=== PATIENT | female | born 1970 | race Caucasian/White ===

== ENCOUNTER 2017-06-09 15:44 | Emergency (ER) | payer BC, OTHER ==
[~2017-06-09] VITALS: Ht 167.6 cm; Wt 88.0 kg
[2017-06-09 15:50] VITALS: Ht 167.6 cm; Wt 88.0 kg
[2017-06-09 16:57] LABS: BASOPHILS % 0.5 % (0.0-2.0); EOSINOPHILS # 0.3 10^3/ul (0.0-0.5); HEMATOCRIT 35.9 % (37.0-47.0); HEMOGLOBIN 12.4 g/dl (12.0-16.0); LYMPHOCYTES # 2.7 10^3/ul (0.8-2.9); MEAN CORPUSCULAR HEMOGLOBIN 30.3 pg (29.0-33.0); MEAN CORPUSCULAR HGB CONC 34.5 g/dl (32.0-37.0); MEAN CORPUSCULAR VOLUME 87.8 fl (82.0-101.0); MEAN PLATELET VOLUME 10.1 fl (7.4-10.4); MONOCYTE # 0.8 10^3/ul (0.3-0.9); NEUTROPHIL # 4.7 10^3/ul (1.6-7.5); NEUTROPHILS % 55.4 % (39.0-77.0); PLATELET COUNT 277 10^3/UL (140-415); RED BLOOD COUNT 4.09 10^6/ul (4.20-5.40); WHITE BLOOD COUNT 8.5 10^3/ul (4.8-10.8)
[2017-06-09 17:16] LABS: ALBUMIN 4.5 g/dl (3.3-4.9); ALBUMIN/GLOBULIN RATIO 1.28; BILIRUBIN,INDIRECT 0.1 mg/dl (0-1.1); BILIRUBIN,TOTAL 0.1 mg/dl (0.2-1.3); CALCIUM 9.6 mg/dl (8.4-10.2); CREATININE 0.76 mg/dl (0.44-1.00); POTASSIUM 3.8 mmol/L (3.5-5.1)
--- NOTE | 2017-06-09 17:24 | RADRPT ---
CLINICAL PROCEDURE: Right lower extremity ultrasound CLINICAL INDICATION: 39-year-old female. Right calf mass versus abscess. TECHNIQUE: Multiple transverse and longitudinal wall scale images were performed of the medial right calf at the site of this patient's symptom with color Doppler. COMPARISON: None available FINDINGS: Focused ultrasound of the medial right calf at the site of the patient's symptoms was performed. In this location, there is thickening of the subcutaneous fat layer compared to the left side with mil d internal vascularity. The process is ill-defined and homogeneously echogenic and occupies an area of approximately 1.5 x 5.8 x 6.2 cm. IMPRESSION: Mass-like process medial right calf at the site of the patient's symptoms is similar echogenicity to fat and does not resemble an abscess. Characterization is incomplete with ultrasound. Differentia l diagnosis includes, but is not limited to, inflamed fat possibly from infection or a fatty neoplas m including a lipoma or well differentiated liposarcoma. Suggest further evaluation with MRI. RPTAT: HCTS Physician Ifrah Date Time Electronically viewed and signed by Physician Ifrah on 06/09/2017 17:23 /
--- NOTE | 2017-06-09 17:38 | RADRPT ---
PROCEDURE: XR Tibia and Fibula. CLINICAL INDICATION: 39-year-old female Pain. TECHNIQUE: AP and lateral views of the right tibia and fibula. COMPARISON: None available. FINDINGS: No acute fracture or dislocation is identified. The joint spaces are unremarkable. Mild anterior a nd lateral soft tissue swelling. Presumed varicose vein medial aspect of the knee.. IMPRESSION: Negative for acute fracture or dislocation of the right tibia and fibula. RPTAT: HCTS Physician Ifrah Date Time Electronically viewed and signed by Physician Ifrah on 06/09/2017 17:38 CS/
[2017-06-09] MEDS ORDERED: CEFTRIAXONE 1 GM/50 ML (PMX) 50 ML IVPB ONE (18:00)
[2017-06-09] MEDS ORDERED: SULF1TAB31 PO (18:50)
--- NOTE | 2017-06-09 18:53 | ERD ---
ER Documentation Chief Complaint Date/Time DATE: 06/09/17 TIME: 18:51 Chief Complaint Complains of right foot pain HPI This 39-year-old female complains of some skin changes and pain on the medial aspect of her right calf over the last several months. She is taking antibiotics in the past without relief. Her last treatment with antibiotics was approximately 6 weeks ago. Here for further evaluation. She denies fevers , vomiting, shortness of the chest pain or history of trauma. ROS All systems reviewed and are negative except as per history of present illness. Medications Home Meds Active Scripts Sulfamethoxazole/Trimethoprim* (Bactrim Ds* Tablet) 1 Each Tablet, 1 TAB PO BID for 7 Days, #14 TAB Prov:ANA HANCOCK MD 06/09/17 Allergies Allergies: Coded Allergies: No Known Allergy (Unverified , 06/09/17) PMhx/Soc History of Surgery: Yes (C SECTION ) Anesthesia Reaction: No Hx Neurological Disorder: No Hx Respiratory Disorders: No Hx Cardiac Disorders: No Hx Psychiatric Problems: No Hx Miscellaneous Medical Probl: Yes (DM ) Hx Alcohol Use: No Hx Substance Use: No Hx Tobacco Use: No Smoking Status: Never smoker Physical Exam Vitals Vital Signs Date Time Temp Pulse Resp B/P Pulse Ox O2 Delivery O2 Flow Rate FiO2 06/09/17 15:50 98.3 94 20 157/68 98 Physical Exam Const: [] Letter, [id number] per Head: Atraumatic Eyes: Normal Conjunctiva ENT: Normal External Ears, Nose and Mouth. Neck: Full range of motion..~ No meningismus. Resp: Clear to auscultation bilaterally Cardio: Regular rate and rhythm, no murmurs Abd: Soft, non tender, non distended. Normal bowel sounds Skin: No petechiae or rashes Back: No midline or flank tenderness Ext: No cyanosis, or edema. There is some area of hyperpigmentation with atrophy of approximately 4 cm in the right medial calf. There is some surrounding induration and tenderness. There is no significant streaking, fluctuance. Some slight warmth. The right lower extremity is neurovascular intact. Neur: Awake and alert Psych: Normal Mood and Affect Result Diagram: 06/09/17 1645 06/09/17 1645 Results 24 hrs Laboratory Tests Test 06/09/17 16:45 White Blood Count 8.510^3/ul Red Blood Count 4.0910^6/ul Hemoglobin 12.4g/dl Hematocrit 35.9% Mean Corpuscular Volume 87.8fl Mean Corpuscular Hemoglobin 30.3pg Mean Corpuscular Hemoglobin Concent 34.5g/dl Red Cell Distribution Width 15.0% Platelet Count 48435^3/UL Mean Platelet Volume 10.1fl Neutrophils % 55.4% Lymphocytes % 32.0% Monocytes % 9.0% Eosinophils % 3.0% Basophils % 0.5% Nucleated Red Blood Cells % 0.0/100WBC Neutrophils # 4.710^3/ul Lymphocytes # 2.710^3/ul Monocytes # 0.810^3/ul Eosinophils # 0.310^3/ul Basophils # 0.010^3/ul Nucleated Red Blood Cells # 0.010^3/ul Sodium Level 146mmol/L Potassium Level 3.8mmol/L Chloride Level 102mmol/L Carbon Dioxide Level 28mmol/L Anion Gap 20 Blood Urea Nitrogen 10mg/dl Creatinine 0.76mg/dl Glucose Level 124mg/dl Calcium Level 9.6mg/dl Total Bilirubin 0.1mg/dl Direct Bilirubin 0.00mg/dl Indirect Bilirubin 0.1mg/dl Aspartate Amino Transf (AST/SGOT) 31IU/L Alanine Aminotransferase (ALT/SGPT) 49IU/L Alkaline Phosphatase 100IU/L Total Protein 8.0g/dl Albumin 4.5g/dl Globulin 3.50g/dl Albumin/Globulin Ratio 1.28 Current Medications Medications (Trade) Dose Ordered Sig/Ingrid Route PRN Reason Start Time Stop Time Status Last Admin Dose Admin Ceftriaxone Sodium (Rocephin) 50 ml @ 100 mls/hr ONCE ONCE IVPB 06/09/17 18:00 06/09/17 18:29 DC 06/09/17 17:59 Procedures/MDM X-ray right Tib/Fib 2V Interpreted by me: Bones: No fracture Joints: No dislocation Foreign body: None the patient have a normal right tib-fib x-ray LINICAL PROCEDURE: Right lower extremity ultrasound CLINICAL INDICATION: 39-year-old female. Right calf mass versus abscess. TECHNIQUE: Multiple transverse and longitudinal wall scale images were performed of the medial right calf at the site of this patient's symptom with color Doppler. COMPARISON: None available FINDINGS: Focused ultrasound of the medial right calf at the site of the patient's symptoms was performed. In this location, there is thickening of the subcutaneous fat layer compared to the left side with mild internal vascularity. The process is ill-defined and homogeneously echogenic and occupies an area of approximately 1.5 x 5.8 x 6.2 cm. IMPRESSION: Mass-like process medial right calf at the site of the patient's symptoms is similar echogenicity to fat and does not resemble an abscess. Characterization is incomplete with ultrasound. Differential diagnosis includes, but is not limited to, inflamed fat possibly from infection or a fatty neoplasm including a lipoma or well differentiated liposarcoma. Suggest further evaluation with MRI. RPTAT: HCTS Physician Ifrah Date Time Electronically viewed and signed by Physician Ifrah on 06/09/2017 17: 23 CS/ CC: ANA HANCOCK MD CBC and CMP showed no acute abnormalities patient was given Rocephin 1 g IV and will treated with Bactrim at home given the warmth although findings suggest possible neoplasm. Patient is recommended to have further evaluation treatment with orthopedist will be referred to orthopedics although she may need authorization from primary care doctor and this was discussed with patient. Patient will be given copies of results and instructions for primary care follow -up as directed. She is otherwise return for fevers, worsening swelling, redness, new worsening symptoms. Current signs and symptoms and duration do not suggest DVT, there is no evidence to suggest osteomyelitis, additional emergent causes of presenting complaints. Departure Diagnosis: Primary Impression: Neoplasm of adipose tissue Additional Impressions: Cellulitis Site of cellulitis: extremity Site of cellulitis of extremity: lower extremity Laterality: right Qualified Code: L03.115 - Cellulitis of right lower extremity Dermatitis Neoplasm Condition: Stable Patient Instructions: Tumor, Uncertain Cause Referrals: ABHISHEK ANDERSON MD,IN [place] Additional Instructions: posiblemente un typo de tumor de grasa. Va al villatoro doctor/ specialista para mas evaluacon en el proximo semana. posiblemente necesita autorizado de villatoro doctor primario para specialista. Regresa para fiebre, o mas o nueva simptomas. ANA HANCOCK MD Jun 09, 2017 18:53
[2017-06-09] MEDS ORDERED: TRAM50TA2 PO (19:08)
[2017-06-09 19:11] VITALS: BP 108/67; PULSE 59; RESP 20; TEMP 97.6
== END 2017-06-09 19:11 | disposition home or self-care (01) ==
LOC: FTE 15:44
DX: C49.21 Malignant neoplasm of connective and soft tissue of right lower limb, including hip (principal); L03.115 Cellulitis of right lower limb; L30.9 Dermatitis, unspecified; E11.9 Type 2 diabetes mellitus without complications
CPT/HCPCS: 36415; 73590; 76536; 80053; 85025; 96374; 99285; J0696